=== PATIENT | male | born 1995 | race African-American/Black ===

== ENCOUNTER 2018-07-13 14:45 | Emergency (ER) | payer MEDICAID, OTHER ==
[2018-07-13] MEDS: KETOROLAC 30 MG INJ IM (15:48)
[2018-07-13] MEDS: HYDROCODONE/APAP (5/325) TAB PO (15:48)
== END 2018-07-13 16:23 | disposition home or self-care (01) ==
LOC: FTE 14:45
DX: K08.89 Other specified disorders of teeth and supporting structures (principal)
CPT/HCPCS: 96372; 99284-25